=== PATIENT | female | born 1950 | race Caucasian/White ===

== ENCOUNTER 2019-02-17 14:44 | Emergency (ER) | payer OTHER, MEDICAID ==
[~2019-02-17] VITALS: Ht 157.5 cm; Wt 59.0 kg
[~2019-02-17 14:44] MED LIST: BENADRYL25 MG PO; CARVEDILOL12.5 MG PO; CITALOPRAM HBR40 MG PO; HYDROCHLOROTH12.5 M1 PO; MEDROLDOSEPACK PO; NORVASC5 MG PO; PREDNISONE50 MG PO; TORADOL 10 MG T10 MG PO; ZESTRIL5 MG
[2019-02-17] MEDS ORDERED: LEVO-T25 MCG PO (14:58)
[2019-02-17] MEDS ORDERED: LIPITOR10 MG PO (14:58)
[2019-02-17 15:48] LABS: ABSOLUTE BASOPHILS 0.1 thou/uL (0.0-0.2); ABSOLUTE EOSINOPHILS 0.1 thou/uL (0.0-0.7); ABSOLUTE LYMPHOCYTES 2.1 thou/uL (0.8-5.3); ABSOLUTE MONOCYTES 0.9 thou/uL (0.0-1.2); ABSOLUTE NEUTROPHILS 5.4 thou/uL (1.6-8.1); BASOPHILS 0.8 %; EOSINOPHILS 1.1 %; HEMATOCRIT 41.7 % (37.0-47.0); HEMOGLOBIN 14.9 gm/dL (12.0-15.0); LYMPHOCYTES 24.3 %; MCH 31.6 pg (26.0-34.0); MCHC 35.7 g/dL (28.0-37.0); MCV 88.4 fL (80.0-100.0); MONOCYTES 10.3 %; MPV 7.6 fl. (7.2-11.1); NUCLEATED RBCS 0 /100WBC; PLATELET COUNT* 238 thou/uL (150-400); POLYS 63.5 %; RBC 4.72 mil/uL (4.20-5.00); RDW-CV 14.5 % (10.5-14.5); WBC 8.5 thou/uL (4.0-11.0)
[2019-02-17 15:56] LABS: APTT 28.6 Seconds (25.0-31.3); INR 1.1; PROTIME 11.1 Seconds (9.20-11.50)
[2019-02-17 16:01] LABS: POTASSIUM 3.9 mmol/L (3.5-5.1)
[2019-02-17 16:06] LABS: ALBUMIN 3.4 g/dL (3.4-5.0); TOTAL BILIRUBIN 0.5 mg/dL (<0.1-1.0); TOTAL PROTEIN 6.5 g/dL (6.4-8.2)
[2019-02-17 17:03] LABS: URINE BILIRUBIN NEGATIVE (Negative); URINE BLOOD 3+ (Negative); URINE CLARITY CLEAR; URINE COLOR YELLOW; URINE GLUCOSE-RANDOM NEGATIVE (Negative); URINE KETONES NEGATIVE (Negative); URINE LEUKOCYTES-REFLEX NEGATIVE (Negative); URINE NITRITE-REFLEX NEGATIVE (Negative); URINE PROTEIN NEGATIVE (Negative); URINE SPECIFIC GRAVITY 1.015 (1.005-1.030); URINE UROBILINOGEN 0.2 E.U./dl (0.2-1.0)
[2019-02-17 17:07] LABS: AMP/METHAMP Negative (Negative); BARBITURATES Negative (Negative); BENZODIAZEPINES Negative (Negative); COCAINE Negative (Negative); METHADONE Negative (Negative); OPIATES Negative (Negative); PCP Negative (Negative); THC Negative (Negative)
[2019-02-17 17:22] VITALS: BP 146/64
[2019-02-17 17:33] LABS: BACTERIA-REFLEX 1-9 Few /HPF (None Seen); CASTS None Seen /LPF (None Seen); CRYSTALS None Seen /LPF (None Seen); MUCUS None Seen strn/LPF (None Seen); SQUAMOUS >10 Many /LPF (0-3); URINE RBC >20 Many /HPF (0-2); URINE WBC-REFLEX 0-5 Rare /HPF (0-5)
--- NOTE | 2019-02-18 10:29 | EKG ---
[place] [address] ELECTROCARDIOGRAM REPORT Name: BELLE MENJIVAR Room: [facility]#: [id number] Admission: 02/17/19 Attend Phys: Discharge: 02/17/19 Date of : 46 Report #: [id number] THIS REPORT FOR: //name// [facility] ED Test Date: 2019-02-17 Test Time: 15:37:12 Pat Name: BELLE MENJIVAR Department: Room: Gender: F [employer] Supervisor: : 1950 Requested By: Supa Doe Order Number: [id number] MD: Tremaine Terrell Measurements Intervals [place] Rate: 52 P: 10 [place]: 153 QRS: -9 QRSD: 111 T: 29 QT: 509 QTc: 474 Interpretive Statements Sinus rhythm Compared to ECG 11/07/2014 01:39:55 No significant changes Electronically Signed On 02-18-2019 10:29:18 TRAFFIC SIGN SUPERVISOR by Tremaine Terrell [email or web address] <ELECTRONICALLY SIGNED> By: Tremaine Terrell MD, [facility] 02/18/19 1029 1537 36 Tremaine Terrell MD, FACC /EPI
== END 2019-02-17 17:23 | disposition home or self-care (01) ==
LOC: M.ERS 14:44
PROVIDERS: Physician Assistant
DX: S01.112A Laceration without foreign body of left eyelid and periocular area, initial encounter (principal); I10 Essential (primary) hypertension; F32.9 Major depressive disorder, single episode, unspecified; F17.210 Nicotine dependence, cigarettes, uncomplicated; Z88.7 Allergy status to serum and vaccine; W18.2XXA Fall in (into) shower or empty bathtub, initial encounter; Y92.89 Other specified places as the place of occurrence of the external cause; Y93.89 Activity, other specified; Y99.8 Other external cause status

== ENCOUNTER → 2020-05-01 | Outpatient (CLI) | payer OTHER, MEDICAID ==
[~2020-05-01] MED LIST changes: +LEVO-T25 MCG PO; +LIPITOR10 MG PO
--- NOTE | 2020-05-01 14:53 | 2DMMODE ---
[place] [address] 2 D/M-MODE ECHOCARDIOGRAM Name: BELLE MENJIVAR Room: [facility]#: [id number] Admission: 05/01/20 Attend Phys: Dory Ryan Discharge: Date of : 46 Date of Service: 05/01/20 1453 Report #: [id number] THIS REPORT FOR: cc: Dory Ryan,Regan Dalal MD [facility] ~ APPROVED REPORT Study performed: 05/01/2020 13:30:15 EXAM: Comprehensive 2D, Doppler, and color-flow Echocardiogram Patient Location: Out-Patient BSA: 1.63 HR: 60 bpm BP: 146/70 mmHg Other Information Study Quality: Good Indications Enlarged heart 2D Dimensions IVSd: 9.50 (7-11mm) LVOT Diam: 18.54 (18-24mm) LVDd: 53.02 mm PWd: 9.00 (7-11mm) Ascending Ao: 30.37 (22-36mm) LVDs: 27.42 (25-40mm) Aortic Root: 24.72 mm Volumes Left Atrial Volume (Systole) LA ESV Index: 19.10 mL/m2 Aortic Valve AoV Peak Christ.: 1.36 m/s AO Peak Gr.: 7.43 mmHg LVOT Max P.06 mmHg AO Mean Gr.: 3.88 mmHg LVOT Mean P.88 mmHg LVOT Max V: 1.01 m/s AO V2 VTI: 34.50 cm LVOT Mean V: 0.63 m/s MICHELLE (VTI): 1.97 cm2 LVOT V1 VTI: 25.19 cm AI [place]: 2.44 m/s2 AI PHT: 482.[place] [address] 2 D/M-MODE ECHOCARDIOGRAM Name: BELLE MENJIVAR Room: [facility]#: [id number] Admission: 05/01/20 Attend Phys: Dory Ryan Discharge: Date of : 46 Date of Service: 05/01/20 1453 Report #: [id number] Mitral Valve MV Decel. Time: 231.59 ms MV PHT: 67.16 ms MVA (PHT): 3.28 cm2 TDI Medial E' Christ.: 0.08 m/s Lateral E' Christ.: 0.05 m/s Pulmonary Valve PV Peak Christ.: 0.89 m/s PV Peak Gr.: 3.14 mmHg Tricuspid Valve RAP Estimate: 5.00 mmHg TR Peak Gr.: 16.07 mmHg RVSP: 21.07 mmHg PA Pressure: 21.07 mmHg Left Ventricle The left ventricle is normal size. There is normal LV segmental wall motion. There is normal left ventricular wall thickness. Left ventricular systolic function is normal. The left ventricular ejection fraction is within the normal range. LVEF is 55-60%. The left ventricular diastolic function is normal. Right Ventricle The right ventricle is normal size. The right ventricular systolic function is normal. Atria The left atrium size is normal. The right atrium size is normal. Aortic Valve Mild aortic valve sclerosis. Mild aortic regurgitation. There is no aortic valvular stenosis. Mitral Valve The mitral valve is normal in structure. Mild mitral regurgitation. No evidence of mitral valve stenosis. Tricuspid Valve The tricuspid valve is normal in structure. Mild tricuspid regurgitation. Pulmonic Valve The pulmonary valve is normal in structure. [place] [address] 2 D/M-MODE ECHOCARDIOGRAM Name: OTTOBELLEGAYATHRI LINDA Room: [facility]#: [id number] Admission: 05/01/20 Attend Phys: Dory Ryan Discharge: Date of : 46 Date of Service: 05/01/20 1453 Report #: [id number] valvular regurgitation. Great Vessels The aortic root is normal in size. IVC is normal in size and collapses >50% with inspiration. Pericardium There is no pericardial effusion. <Conclusion> LVEF is 55-60%. Mild aortic valve sclerosis. Mild aortic regurgitation. Mild mitral regurgitation. <ELECTRONICALLY SIGNED> By: Regan Donovan MD, [facility] 05/01/20 1453 145 1453 Regan Donovan MD, FAC /INF
== END ==
LOC: M.RAD 04-11 09:35
PROVIDERS: ATTEND Nurse Practitioner Family
DX: Z12.31 Encounter for screening mammogram for malignant neoplasm of breast (principal); Z13.820 Encounter for screening for osteoporosis; I08.3 Combined rheumatic disorders of mitral, aortic and tricuspid valves; N95.1 Menopausal and female climacteric states; E28.39 Other primary ovarian failure; R55 Syncope and collapse

== ENCOUNTER → 2020-06-12 | Outpatient (CLI) | payer OTHER | LOC: M.CT 11:30 | PROVIDERS: ATTEND Nurse Practitioner Family | DX: Z13.6 Encounter for screening for cardiovascular disorders (principal) ==

== ENCOUNTER → 2020-07-05 | Outpatient (CLI) | payer OTHER, MEDICAID ==
[~2020-07-05] MED LIST changes: +ADULT ASPIRIN R81 MG PO; +FOSAMAX 70 MG T70 MG PO; +OXYBUTYNIN 5 MG5 M2 PO
--- NOTE | 2020-07-05 13:55 | CARDNUC ---
[place] [address] CARDIAC NUCLEAR IMAGING REPORT Name: BELLE MENJIVAR Room: [facility]#: [id number] Admission: 07/05/20 Attend Phys: Darin Peralta, Discharge: Date of : 46 Date of Service: 07/05/20 1355 Report #: [id number] THIS REPORT FOR: cc: Dory Ryan Ann FNPC Biggs, F. Douglas MD [facility] ~ APPROVED REPORT Study performed: 07/05/2020 09:30:00 Indication: CT coronary Artery calcification. Patient Location: Out-Patient Stress Tech: Rola Clemons Stress Nurse: Maryjane Todd RN Ht: 5 ft 3 in Wt: 134 lbs BSA: 1.63 m2 BMI: 23.73 Medical History Medical History: increased coronary artery calcification CT, CKD III, bilateral carotid atherosclerosis, aortic valve sclerosis, mild mitral/aortic regurgitation, CHALINO, hypothyroidism, nicotine dependence, bradycardia., HTN, HLD, current vape smoker, FHX CAD. Medications: ASA 81 Mg, Atorvastatin, Carvedilol Allergies: REGGIE-I, Pneumovax Cardiac Risk Factors: Age, Current Smoker, FHX of CAD, HTN, Hyperlipidemia, mitral/aortic regurgitation, carotid atherosclerosis, CKD, CAD. Previous Cardiac Procedures: None Pretest Chest Pain Characteristics: No chest pain Exercise History: Indeterminate Physical Disabilities: valve regurgitation, valve sclerosis. Meds Held (24 hrs): Carvedilol Resting Data Rest SPECT myocardial perfusion imaging was performed in supine position 30 minutes following the intravenous injection of 9.2 mCi of Tc-99m Sestamibi. Time of rest injection: 10:00 The images were gated to evaluate regional wall motion and calculate left ventricular ejection fraction. Administration Route: IV Administration Site: [place] [address] CARDIAC NUCLEAR IMAGING REPORT Name: BELLE MENJIVAR Room: [facility]#: [id number] Admission: 07/05/20 Attend Phys: Darin Peralta, Discharge: Date of : 46 Date of Service: 07/05/20 1355 Report #: [id number] Pharmacologic Stress Pharmacologic stress test was performed by injecting Regadenoson 0.4 mg IV push over 10-15 seconds immediately followed by the intravenous injection of 30.7 mCi of Tc-99m Sestamibi. Time of stress injection: 11:50 Administration Route: IV Administration Site: Right Arm Heart Rate at time of stress injection: 74 bpm. Gated Stress SPECT was performed 40 minutes after stress injection. The images were gated to evaluate regional wall motion and calculate left ventricular ejection fraction. Prone imaging was performed. Stress Test Details Stress Test: Pharmacologic stress testing performed using 0.4 mg of regadenoson per 5 mL given IV over 10 seconds. Reason for pharmacologic stress test: valve regurgitation, valve sclerosis.. HR Max Heart Rate (APMHR): 149 bpm Resting HR: 47 bpm Target HR (85% APMHR): 126 bpm Max HR Achieved: 74 bpm % of APMHR: 49 Recovery HR: 66 bpm HR response to stress: Normal HR response to stress BP Resting BP: 137/70 mmHg Max BP: 183/67 mmHg Recovery BP: 173/71 mmHg BP response to stress: Normal blood pressure response to stress. ECG Resting ECG: Sinus Bradycardia otherwise normal EKG Stress ECG: Sinus Bradycardia otherwise normal EKG ST Change: None Arrhythmia: None Recovery ECG: Sinus Rhythm, normal EKG Recovery ST Change: None Recovery Arrhythmia: None Clinical Reason for Termination: Completed protocol Stress Symptoms: dyspnea, stomach discomfort, lightheaded, [place] [address] CARDIAC NUCLEAR IMAGING REPORT Name: BELLE MENJIVAR Room: [facility]#: [id number] Admission: 07/05/20 Attend Phys: Darin Peralta, Discharge: Date of : 46 Date of Service: 07/05/20 1355 Report #: [id number] Exercise duration: 00 min 00 sec Exercise capacity: 1.00 METs Nurse Comments A 69 year old female presented for a sitting Lexiscan with bradycardia 48 hours off carvedilol. Test well tolerated. Recovery unremarkable. Patient was stable and stated she felt good when escorted to nuclear medicine for imaging Stress ECG Conclusion Normal hemodynamic response to pharmacologic stress. Clinical: Non-ischemic Non-diagnostic pharmacologic EKG stress due to failure to attain target HR. Study Quality Study: Good Artifact: No artifact No artifact Lung Uptake: Normal Study Data At rest, the left ventricular ejection fraction was 65%.. Post stress, the left ventricular ejection was 67%.. SSS: 0 SRS: 3 SDS: -3 TID = 1.05. Perfusion Normal left ventricular perfusion. There was normal perfusion seen both at rest as well as following stress and with prone imaging Normal perfusion on both the stress and rest images. Images were reviewed using [employer]. Wall Motion Normal left ventricular wall motion. Nuclear Conclusion ECG Findings: non-diagnostic Clinical Findings: negative for ischemia Nuclear Findings: negative for ischemia Exercise Capacity: not assessed Left Ventricular Function: normal Risk Study: low Normal study. No scintigraphic evidence [place] [address] CARDIAC NUCLEAR IMAGING REPORT Name: BELLE MENJIVAR Room: [facility]REEN Vidal#: [id number] Admission: 07/05/20 Attend Phys: Darin Peralta, Discharge: Date of : 46 Date of Service: 07/05/20 1355 Report #: [id number]. <Conclusion> Normal hemodynamic response to pharmacologic stress. Clinical: Non-ischemic Non-diagnostic pharmacologic EKG stress due to failure to attain target HR. <ELECTRONICALLY SIGNED> By: Darin Peralta MD, [facility] 07/05/20 1355 1355 1355 Darin Peralta MD, FACC /INF
== END ==
LOC: M.NUC 06-22 08:30 → M.CRD 09:00 → M.NUC 09:25
PROVIDERS: ATTEND Internal Medicine
DX: I25.10 Atherosclerotic heart disease of native coronary artery without angina pectoris (principal)

== ENCOUNTER → 2020-07-11 | Outpatient (CLI) | payer OTHER, MEDICAID ==
--- NOTE | 2020-07-19 14:36 | PF ---
[place] [address] PULMONARY FUNCTION REPORT Name: BELLE MENJIVAR Room: [facility]#: [id number] Admission: 07/11/20 Attend Phys: Ld Felix MD Discharge: Date of : 46 Report #: [id number] THIS REPORT FOR: cc: Dory Ryan Ann FNPC Pervez, Adeel MD ~ DATE OF SERVICE: 07/11/2020 The FEV1/FVC ratio is normal at 75% with an FVC normal at 93% and FEV1 normal at 92%. The ANE18-65, however, is decreased to 61%. The patient's FEV1 is 1.97 liters. This does not increase after the administration of a bronchodilator. There is no significant increase in any of the other values in spirometry after the administration of a bronchodilator. The total lung capacity and residual volume are not available. The DLCO as adjusted for hemoglobin is decreased to 66%. The flow volume loop is concave upwards. IMPRESSION: There is minimal obstruction without evidence of reversibility as evidenced by reduced RVC66-79 and a flow volume loop concave upwards. The DLCO as adjusted for hemoglobin is decreased to 66%. The lung volumes are not available. <ELECTRONICALLY SIGNED> By: Ld Felix MD 07/19/20 1436 0912 [id number] kirk Julian
== END ==
LOC: M.PUL 11:27
PROVIDERS: ATTEND Internal Medicine Critical Care Medicine
DX: J98.4 Other disorders of lung (principal); R06.02 Shortness of breath; Z87.891 Personal history of nicotine dependence

== ENCOUNTER → 2020-09-26 | Outpatient (CLI) | payer OTHER, MEDICAID | LOC: M.CT 13:00 | PROVIDERS: ATTEND Internal Medicine Critical Care Medicine | DX: I31.3 Pericardial effusion (noninflammatory) (principal); R91.1 Solitary pulmonary nodule; R91.8 Other nonspecific abnormal finding of lung field; R06.02 Shortness of breath; I25.10 Atherosclerotic heart disease of native coronary artery without angina pectoris ==

== ENCOUNTER → 2021-01-02 | Outpatient (CLI) | payer OTHER, MEDICAID | LOC: M.ULTRA 13:00 | PROVIDERS: ATTEND Nurse Practitioner Family | DX: N64.52 Nipple discharge (principal) ==

== ENCOUNTER → 2021-03-28 | Outpatient (CLI) | payer OTHER, MEDICAID | LOC: M.CT 13:54 | PROVIDERS: ATTEND Internal Medicine Critical Care Medicine | DX: I25.10 Atherosclerotic heart disease of native coronary artery without angina pectoris (principal); I70.0 Atherosclerosis of aorta; M47.814 Spondylosis without myelopathy or radiculopathy, thoracic region; I51.7 Cardiomegaly; I31.3 Pericardial effusion (noninflammatory); R91.8 Other nonspecific abnormal finding of lung field ==

== ENCOUNTER → 2021-04-24 | Outpatient (CLI) | payer OTHER, MEDICAID | LOC: M.RAD 04-19 16:26 | PROVIDERS: ATTEND Nurse Practitioner Family | DX: M85.88 Other specified disorders of bone density and structure, other site (principal); N64.52 Nipple discharge; Z78.0 Asymptomatic menopausal state ==

== ENCOUNTER → 2021-05-17 | Outpatient (CLI) | payer OTHER, MEDICAID ==
--- NOTE | 2021-05-18 14:07 | PATH ---
[address] [address] PATHOLOGY RPT PROCEDURE Name: BRIANDA LANZA Room: [facility]REEN Vidal#: [id number] Admission: 05/17/21 Date of : 46 Discharge: Report #: [id number] Path Case #: [id number] [facility] Accession Number: [id number] . 01 Material submitted: . breast - LEFT BREAST MASS. Modifiers: left . 01 Clinical history: . US/MAMMOTOME BX LT BREAST/ MASS 0.38 X 0.31 X 0.24 COLLECTED: 926 FORMALIN: 926 . 02 Diagnosis: Left breast mass, image guided core biopsies: - Benign breast tissue with dense fibrosis, duct ectasia and prominent chronic inflammation, negative for atypia. See comment. (GURPREET:daron; 05/18/2021) QTP 05/18/2021 0959 Local . 02 Comment: Reviewed with Dr. Yanci Mota on 05/18/2021 who agrees with the diagnosis. (GURPREET:pit; 05/18/2021) . 02 Electronically signed: . Eh Fuentes MD, Pathologist NPI- [id number] . 01 Gross description: . The specimen is received in formalin, labeled "Brianda Lanza, left breast nodule". Received are 5, xiao-pink, focally hemorrhagic, needle core fragments, ranging in length from 0.3-1.5 cm, and measuring 0.2 cm in diameter. The specimen is entirely submitted in cassettes A1-A3. . The specimen was removed from the body at 0926 and placed in formalin and 0926 on 05/17/2021. The specimen will be removed from formalin at 2240 on 05/17/2021. The specimen is in formalin for greater than 6 hours and less than 72 hours. (JGG; 05/17/2021) JGG/JGG 05/17/20212054 Local . 02 Pathologist provided ICD-10: N60.32, N60.42, N61.0 . 02 CPT . 662597 Specimen Comment: A courtesy copy of this report has been sent to [phone] [address] PATHOLOGY RPT PROCEDURE Name: BRIANDA LANZA Room: [facility]#: [id number] Admission: 05/17/21 Date of : 46 Discharge: Report #: [id number] Path Case #: [id number] Specimen Comment: [id number] Specimen Comment: Report sent to , DR ACEVEDO / DR FOLEY Performed at: [address], [place], [place] [id number] MD Wilfredo Johnson MD Phone: [phone] Performed at: 02 [facility] [address] [place], [place], [place] [id number] MD Eh Fuentes MD Phone: [phone]
== END ==
LOC: M.ULTRA 08:06
PROVIDERS: ATTEND Nurse Practitioner Family
DX: N60.32 Fibrosclerosis of left breast (principal); N60.42 Mammary duct ectasia of left breast; N61.0 Mastitis without abscess; R92.1 Mammographic calcification found on diagnostic imaging of breast; Z98.890 Other specified postprocedural states; Z79.899 Other long term (current) drug therapy; Z88.8 Allergy status to other drugs, medicaments and biological substances